=== PATIENT | male | born 1935 | race Caucasian/White ===

== ENCOUNTER 2018-12-22 19:38 | Emergency (ER) | payer MEDICARE ==
[~2018-12-22] VITALS: Ht 175.3 cm; Wt 58.0 kg
[2018-12-23 00:43] VITALS: BP 167/70
== END 2018-12-23 01:11 | disposition home or self-care (01) ==
LOC: ED 21:02
DX: N30.01 Acute cystitis with hematuria (principal); I10 Essential (primary) hypertension; E03.9 Hypothyroidism, unspecified; J44.9 Chronic obstructive pulmonary disease, unspecified; Z85.46 Personal history of malignant neoplasm of prostate
CPT/HCPCS: 36415; 80048; 81001; 82040; 85025; 85610; 87086; 99283